=== PATIENT | male | born 1940 | race Caucasian/White ===

== ENCOUNTER 2017-05-26 11:58 | Emergency (ER) | payer MEDICARE, MEDICAID ==
[~2017-05-26] VITALS: Ht 167.6 cm; Wt 68.9 kg
--- NOTE | 2017-05-26 12:03 | NUR ---
S/ FELL OFF BED AT NIGHT ~ 0030, R EYE HEMATOMA. TAKES PLAVIX DAILY. DENIES N/V/ DIZZINESS
--- NOTE | 2017-05-26 12:20 | NUR ---
DR AVALOS AT BEDSIDE FOR EVAL
--- NOTE | 2017-05-26 12:28 | NUR ---
PT TAKEN TO CT
--- NOTE | 2017-05-26 13:47 | NUR ---
Patient discharged to home in stable condition. Written and verbal after care instructions given. Patient verbalizes understanding of instruction.
[2017-05-26 13:49] VITALS: BP 120/62
== END 2017-05-26 13:50 | disposition home or self-care (01) ==
LOC: ER 12:02
DX: S09.90XA Unspecified injury of head, initial encounter (principal); S01.411A Laceration without foreign body of right cheek and temporomandibular area, initial encounter; S00.83XA Contusion of other part of head, initial encounter; I10 Essential (primary) hypertension; I25.10 Atherosclerotic heart disease of native coronary artery without angina pectoris; W06.XXXA Fall from bed, initial encounter; Y93.89 Activity, other specified; Y92.89 Other specified places as the place of occurrence of the external cause; Y99.8 Other external cause status
CPT/HCPCS: 12011; 70450; 70486; 99284; A4606; Z7610

== ENCOUNTER 2018-12-07 12:28 | Emergency (ER) | payer MEDICARE, MEDICAID ==
[~2018-12-07] VITALS: Ht 167.6 cm; Wt 71.7 kg
--- NOTE | 2018-12-07 12:45 | NUR ---
BIB , FROM HOME, CONFUSED THAN USUAL. TO ER BED 1, HOOKED TO MONITOR, CHANGED TO GOWN, PROVIDED W WARM BLANKET, AWAITING MD TRAN.
--- NOTE | 2018-12-07 12:50 | NUR ---
DR SHARP AT BEDSIDE
[2018-12-07] MEDS ORDERED: IV NS 0.9% 1,000 ML BAG IV ONE (13:00)
[2018-12-07 13:05] LABS: BASOPHILS % (AUTO) 0.1 % (0.0-2.0); EOSINOPHILS % (AUTO) 0.2 % (0.0-6.0); HEMATOCRIT 40 % (39-51); HEMOGLOBIN 13.1 g/dL (13.5-17.5); LYMPHOCYTES # (AUTO) 0.8 /CMM (0.8-4.8); LYMPHOCYTES % (AUTO) 9.8 % (20.0-44.0); MEAN CORPUSCULAR HGB CONC 33 g/dl (31.0-36.0); MEAN CORPUSCULAR VOLUME 92 fL (80-96); MONOCYTES # (AUTO) 0.6 /CMM (0.1-1.30); MONOCYTES % (AUTO) 7.9 % (2.0-12.0); NEUTROPHILS # (AUTO) 6.4 /CMM (1.8-8.9); PLATELET COUNT (AUTO) 215 /CMM (150-450); RED BLOOD CELL COUNT(AUTO) 4.33 MIL/uL (4.5-6.0); WHITE BLOOD COUNT (AUTO) 7.8 K/uL (4.3-11.0)
[2018-12-07 13:06] LABS: APPEARANCE,URINE Clear (CLEAR); BILIRUBIN,URINE Negative (NEGATIVE); BLOOD, URINE Negative Ery/uL (NEGATIVE); COLOR,URINE Yellow (YELLOW); KETONES,URINE Negative (NEGATIVE); LEUKOCYTE ESTERASE ,URINE Negative (NEGATIVE); NITRITE, URINE Negative (NEGATIVE); PH,URINE 5.5 (5.0-8.0); PROTEIN,URINE Negative (NEGATIVE); UGLUCOSE Negative (NEGATIVE); UROBILINOGEN,URINE 0.2 EU/dL (0.2)
[2018-12-07 13:24] LABS: ALANINE AMINOTRANSFERASE 15 U/L (12-78); ALBUMIN 3.9 g/dL (3.4-5.0); ALKALINE PHOSPHATASE 52 U/L (46-116); ASPARTATE AMINOTRANSFERASE 36 U/L (15-37); BILIRUBIN,DIRECT 0.1 mg/dL (0.0-0.2); BILIRUBIN,TOTAL 0.6 mg/dL (0.2-1.0); CARBON DIOXIDE 30 mmol/L (21-32); CHLORIDE 103 mmol/L (98-107); CREATININE 1.3 mg/dL (0.6-1.3); GLUCOSE 141 mg/dL (74-106); SODIUM SERUM 140 mmol/L (136-145); TOTAL PROTEIN, SERUM 7.2 g/dL (6.4-8.2); UREA NITROGEN, BLOOD 20 mg/dL (7-18)
[2018-12-07 13:29] LABS: CALCIUM, SERUM 9.2 mg/dL (8.5-10.1); THYROID STIMULATING HORMONE 1.138 uIU/mL (0.358-3.74)
[2018-12-07] MEDS ORDERED: LOSA50TA39 PO (13:47)
[2018-12-07] MEDS ORDERED: RIVA1PAT12 TD (13:47)
[2018-12-07] MEDS ORDERED: CLOP75TA15 PO (13:47)
[2018-12-07] MEDS ORDERED: CHOL50004 PO (13:47)
[2018-12-07] MEDS ORDERED: CARB1TAB21 PO (13:47)
[2018-12-07] MEDS ORDERED: METO50TA16 PO (13:47)
[2018-12-07] MEDS ORDERED: ATOR10TA PO (13:47)
[2018-12-07] MEDS ORDERED: ASPI81TA44 PO (13:47)
--- NOTE | 2018-12-07 14:21 | NUR ---
IV removed. Catheter intact and site benign. Pressure and 4x4 applied to site. No bleeding noted.Patient discharged to home in stable condition. Written and verbal after care instructions given. Patient verbalizes understanding of instruction.
[2018-12-07 14:22] VITALS: BP 127/62
== END 2018-12-07 14:23 | disposition home or self-care (01) ==
LOC: ER 12:29
DX: E86.0 Dehydration (principal); G20 Parkinson's disease; F02.80 Dementia in other diseases classified elsewhere, unspecified severity, without behavioral disturbance, psychotic disturbance, mood disturbance, and anxiety; I10 Essential (primary) hypertension; I25.10 Atherosclerotic heart disease of native coronary artery without angina pectoris; R40.4 Transient alteration of awareness; Z98.890 Other specified postprocedural states; Z79.82 Long term (current) use of aspirin; Z95.5 Presence of coronary angioplasty implant and graft
CPT/HCPCS: 36415; 70450; 71045; 80048; 80076; 81001; 82962; 84443; 85025; 93005; 96360; 99284; J7030; 81000-TC

== ENCOUNTER 2019-09-07 22:42 | Inpatient (IN) | payer MEDICARE, MEDICAID ==
[~2019-09-07] VITALS: Ht 172.7 cm; Wt 78.1 kg
[~2019-09-07 22:42] MED LIST: ASPI81TA44 PO; ATOR10TA PO; CARB1TAB21 PO; CHOL50004 PO; CLOP75TA15 PO; LOSA50TA39 PO; METO50TA16 PO; RIVA1PAT12 TD
--- NOTE | 2019-09-07 22:53 | NUR ---
PT VIRGILIO FROM [facility] C/C HIGH FEVER, RECENT UTI/GUEVARA. ON ANTIBIOTICS. BG 132 PER EMS. PT NONVERBAL, RESPONSIVE TO MECHANICAL STIMULUS, CONNECTED TO THE MONITOR AND POX.
--- NOTE | 2019-09-07 22:55 | NUR ---
BLOOD DRAWN AND SENT TO LAB
[2019-09-07] MEDS ORDERED: CEFTRIAXONE 1 G in IV D5W 50 ML IV ONE (23:00)
[2019-09-07] MEDS ORDERED: IV NS 0.9% 1,000 ML BAG IV ONE (23:00)
[2019-09-07] MEDS ORDERED: MEROPENEM 1 G in IV NS 0.9% 100 ML IV ONE (23:00)
--- NOTE | 2019-09-07 23:00 | NUR ---
URINE COLLECTED AND SENT TO LAB
[2019-09-07] MEDS ORDERED: CEFTRIAXONE 1GM BAG (ER ONLY) 50 ML IV ONE (23:05)
[2019-09-07] MEDS ORDERED: MEROPENEM 1 G VIAL IV ONE (23:06)
[2019-09-07 23:22] LABS: BASOPHILS % (AUTO) 1.2 % (0.0-2.0); EOSINOPHILS % (AUTO) 0.6 % (0.0-6.0); HEMATOCRIT 34 % (39-51); HEMOGLOBIN 10.8 g/dL (13.5-17.5); LYMPHOCYTES # (AUTO) 0.1 /CMM (0.8-4.8); LYMPHOCYTES % (AUTO) 14.3 % (20.0-44.0); MEAN CORPUSCULAR HGB CONC 32 g/dl (31.0-36.0); MEAN CORPUSCULAR VOLUME 88 fL (80-96); NEUTROPHILS # (AUTO) 0.3 /CMM (1.8-8.9); NEUTROPHILS % (AUTO) 82.9 % (43.0-81.0); PLATELET COUNT (AUTO) 106 /CMM (150-450); RED BLOOD CELL COUNT(AUTO) 3.85 MIL/uL (4.5-6.0)
[2019-09-07] MEDS ORDERED: ACETAMINOPHEN 650 MG/SUPP.RECT RC ONE ×2 (23:23→23:30)
[2019-09-07 23:25] LABS: CALCIUM, SERUM 8.4 mg/dL (8.5-10.1); CARBON DIOXIDE 25 mmol/L (21-32); CHLORIDE 102 mmol/L (98-107); CREATININE 1.4 mg/dL (0.6-1.3); GLUCOSE 133 mg/dL (74-106); POTASSIUM 3.4 mmol/L (3.5-5.1); SODIUM SERUM 137 mmol/L (136-145); UREA NITROGEN, BLOOD 36 mg/dL (7-18); WHITE BLOOD COUNT (AUTO) 0.4 K/uL (4.3-11.0)
[2019-09-07] MEDS ORDERED: ACETAMINOPHEN ES 500 MG TABLET PO ONE (23:30)
[2019-09-07 23:31] LABS: APPEARANCE,URINE Cloudy (CLEAR); BILIRUBIN,URINE SMALL (NEGATIVE); BLOOD, URINE Large Ery/uL (NEGATIVE); COLOR,URINE Yellow (YELLOW); KETONES,URINE Trace (NEGATIVE); LEUKOCYTE ESTERASE ,URINE Large (NEGATIVE); NITRITE, URINE Positive (NEGATIVE); PROTEIN,URINE >=300 mg/dl (NEGATIVE); UGLUCOSE Negative (NEGATIVE); UROBILINOGEN,URINE 0.2 EU/dL (0.2)
[2019-09-07 23:32] LABS: PH,URINE >9.0 (5.0-8.0)
[2019-09-07 23:43] LABS: ALANINE AMINOTRANSFERASE 12 U/L (12-78); ALBUMIN 2.8 g/dL (3.4-5.0); ALKALINE PHOSPHATASE 71 U/L (46-116); ASPARTATE AMINOTRANSFERASE 41 U/L (15-37); B-TYPE NATRIURETIC PEPTIDE 1140 PG/ML (0-125); BILIRUBIN,DIRECT 0.1 mg/dL (0.0-0.2); BILIRUBIN,TOTAL 0.3 mg/dL (0.2-1.0); TOTAL PROTEIN, SERUM 6.3 g/dL (6.4-8.2)
[2019-09-08] MEDS ORDERED: ONDANSETRON HCL/PF 4 MG/2 ML VIAL IVP PRN
[2019-09-08] MEDS ORDERED: MAG HYDROX/AL HYDROX/SIMETH 30 ML UDC PO PRN
[2019-09-08] MEDS ORDERED: MAGNESIUM HYDROXIDE 30 ML UDC PO PRN
[2019-09-08] MEDS ORDERED: Z GUARD REMEDY 2 OZ OINT TP PRN
--- NOTE | 2019-09-08 00:14 | NUR ---
FLUID REASSESSMENT DONE
--- NOTE | 2019-09-08 00:21 | NUR ---
'S NUMBER [phone] LUIS ALFREDO
--- NOTE | 2019-09-08 00:27 | NUR ---
REPORT GIVEN TO NACHO MCNEIL
[2019-09-08 00:45] VITALS: BP 101/53
--- NOTE | 2019-09-08 00:53 | NUR ---
PT TRANSFERRED IN STABLE CONDITION
--- NOTE | 2019-09-08 01:00 | NUR ---
RN ADMITTING NOTES RECEIVED REPORT FROM CLEARANCE CUTTER AMIE. Pt ARRIVED TO THE FLOOR VIA ER [facility]DO; TRANSFERRED Pt TO ROOM BED SAFELY WITH STAFF MEMBERS. Pt IS NONVERBAL, NOT RESPONDING TO QUESTIONS, BUT IS AWAKE, AND RESPONDS TO STIMULI. OPENS & CLOSES EYES. IV ACCESS ON LWRIST/LFA #16G & RWRIST #18G. NO S/S OF ACUTE DISTRESS OR SOB NOTED. SAFETY MEASURES IN PLACE. BED LOW, LOCKED, HOB ELEVATED, SIDE RAILS UP, BED ALARM ON. WILL CONTINUE TO MONITOR Pt's CONDITION AND SAFETY THROUGHOUT THE NIGHT. TELE READING SR 98.
[2019-09-08 01:19] LABS: BACTERIA,URINE Moderate /HPF (None Seen); SQUAMOUS EPITHELIAL CELL,UR Rare /HPF (None Seen); TRIPLE PHOSPHATE CRYSTAL,UR Few /HPF (None Seen)
[2019-09-08] MEDS: IV NS 0.9% 1,000 ML IV PRN ×2 (01:48→17:55)
[2019-09-08 02:03] LABS: LYMPHOCYTES % (MANUAL) 19 % (16-48); MONOCYTES % (MANUAL) 1 % (0-11.0); NEUTROPHILS % (MANUAL) 80 (42-76)
[2019-09-08] MEDS ORDERED: VANCOMYCIN 1.5 GM in IV D5W 500ml IV ONE (02:30)
[2019-09-08] MEDS ORDERED: VANCOMYCIN 1 GM VIAL ONE ×2 (02:39→03:03)
--- NOTE | 2019-09-08 02:45 | NUR ---
RN NOTES VANCO 1.5GM NOT AVAILABLE ON THE FLOOR. PER NURSE PHYSICAL CHEMIST, SAID TO PULL OUT 2 VANCO OF 1GM AND GIVE ONLY HALF OF THE 2ND VANCO, IN ORDER TO GIVE THE TOTAL DOSE OF 1.5GM.
--- NOTE | 2019-09-08 03:03 | NUR ---
RN NOTES SPOKE WITH LETTY ON THE PHONE IN REGARDS TO Pt's REPEAT LACTIC ACID OF 4.3 (ELEVATED FROM 3.3 IN ER) VERBAL ORDER GIVEN TO GIVE 1L NS BOLUS AND ANOTHER REPEAT LACTIC ACID AFTERWARDS.
[2019-09-08] MEDS ORDERED: IV NS 0.9% 1,000 ML IV ONE ×2 (03:30→05:30)
[2019-09-08] MEDS ORDERED: TAMS-12 PO (03:56)
[2019-09-08] MEDS ORDERED: FERR325T23 PO (03:56)
[2019-09-08] MEDS ORDERED: SIMV80TA90 PO (03:56)
[2019-09-08] MEDS ORDERED: ESCI10TA PO (03:56)
[2019-09-08] MEDS ORDERED: CRAN425C6 PO (03:56)
[2019-09-08] MEDS ORDERED: MEMA10TA PO (03:56)
[2019-09-08 04:00] VITALS: BP 137/98
[2019-09-08 04:05] LABS: EOSINOPHILS % (AUTO) 0.2 % (0.0-6.0); HEMATOCRIT 30 % (39-51); HEMOGLOBIN 9.7 g/dL (13.5-17.5); LYMPHOCYTES # (AUTO) 0.1 /CMM (0.8-4.8); LYMPHOCYTES % (AUTO) 4.6 % (20.0-44.0); MEAN CORPUSCULAR HGB CONC 32 g/dl (31.0-36.0); MEAN CORPUSCULAR VOLUME 90 fL (80-96); MONOCYTES % (AUTO) 1.1 % (2.0-12.0); NEUTROPHILS # (AUTO) 2.4 /CMM (1.8-8.9); NEUTROPHILS % (AUTO) 94.1 % (43.0-81.0); PLATELET COUNT (AUTO) 69 /CMM (150-450); RED BLOOD CELL COUNT(AUTO) 3.39 MIL/uL (4.5-6.0); WHITE BLOOD COUNT (AUTO) 2.6 K/uL (4.3-11.0)
[2019-09-08 04:15] LABS: CALCIUM, SERUM 8.3 mg/dL (8.5-10.1); CARBON DIOXIDE 21 mmol/L (21-32); CHLORIDE 106 mmol/L (98-107); CREATININE 1.6 mg/dL (0.6-1.3); GLUCOSE 119 mg/dL (74-106); MAGNESIUM 1.6 mg/dL (1.8-2.4); PHOSPHORUS 1.4 mg/dL (2.5-4.9); POTASSIUM 3.4 mmol/L (3.5-5.1); SODIUM SERUM 140 mmol/L (136-145); UREA NITROGEN, BLOOD 31 mg/dL (7-18)
[2019-09-08 04:27] LABS: BAND % (MANUAL) 8 % (0.0-5.0); LYMPHOCYTES % (MANUAL) 5 % (16-48); MONOCYTES % (MANUAL) 1 % (0-11.0); NEUTROPHILS % (MANUAL) 86 (42-76)
[2019-09-08 04:28] LABS: CHOLESTEROL 75 mg/dL (<200); HDL CHOLESTEROL 33 mg/dL (40-60); LDL 37 mg/dL (0-99); THYROID STIMULATING HORMONE 1.482 uIU/mL (0.358-3.74); TRIGLYCERIDES 78 mg/dL (30-150)
--- NOTE | 2019-09-08 04:42 | NUR ---
RN NOTES PAGED WAREHOUSE SHIPPER HOSPITALIST LETTY TO INFORM HIM OF Pt's REPEAT LACTIC ACID OF 5.5 . WAITING FOR CALL BACK.
[2019-09-08] MEDS ORDERED: MEROPENEM 500 MG in IV NS 0.9% 50 ML IV SCH ×4 (05:00)
--- NOTE | 2019-09-08 05:28 | NUR ---
RN NOTES SPOKE WITH LETTY ON THE PHONE INFORMED HIM OF Pt's INCREASED LACTIC ACID OF 5.5 GAVE VERBAL ORDER OF 1L NS BOLUS, LABS: ABG & REPEAT LACTIC ACID. WILL CARRY OUT ORDERS.
[2019-09-08] MEDS ORDERED: MEROPENEM 500 MG VIAL IV ONE (05:52)
--- NOTE | 2019-09-08 06:30 | NUR ---
RN CLOSING NOTES NO OTHER SIGNIFICANT CHANGES IN Pt's CONDITION. Pt's TEMP HAS DECREASED TO 98.2F AUX, S/P COOLING MEASURES GIVEN. FLAME CHANNELER AWARE. IVF NS RUNNING @75ML/HR INFUSING WELL. IV ACCESS INTACT & PATENT. TELE READING SR 96. ALL NEEDS MET AND ATTENDED TO. SAFETY MEASURES IN PLACE. WILL ENDORSE TO FLORA RN FOR Pt's ISIDRO.
--- NOTE | 2019-09-08 07:30 | NUR ---
RECEIVED PT. ASLEEP. VS STABLE. SKIN WARM AND DRY. IV INFUSING. GOOD AMT. URINE DRAINING FROM SUPRAPUBIC CATHETER.NOT AROUSABLE,BUT STABLE.SIDE RAILS UP.APPEARS COMFORTABLE.
[2019-09-08 08:00] VITALS: BP 113/67
--- NOTE | 2019-09-08 08:00 | NUR ---
MOUTH CARE DONE AND FAMILY HERE WANTING TO FEED PT. ADVISED NPO.
[2019-09-08] MEDS ORDERED: FEE PK DOSING 1 MIN EA MC ONE (08:24)
[2019-09-08] MEDS: CHOLECALCIFEROL 1,000 UNIT TABLET (VIT D3) PO SCH (09:00)
[2019-09-08] MEDS: CLOPIDOGREL BISULFATE 75 MG TABLET PO SCH (09:00)
[2019-09-08] MEDS: ASPIRIN EC 81 MG TABLET.DR PO SCH (09:00)
[2019-09-08] MEDS: METOPROLOL TARTRATE 50 MG TABLET PO SCH ×2 (09:00→17:00)
[2019-09-08] MEDS ORDERED: LOSARTAN POTASSIUM 50 MG TABLET PO SCH (09:00)
[2019-09-08] MEDS: CARBIDOPA/LEVODOPA 25/100 MG 1 UDTAB PO SCH ×3 (09:00→17:00)
[2019-09-08 09:29] LABS: ABG BASE EXCESS -6.1 mmol/L; ABG OXYGEN SATURATION 97.8 % (92.0-98.5); ABG PCO2 26.4 mmHg (35.0-45.0); ABG PH 7.426 (7.350-7.450); ABG PO2 116.4 mmHg (75.0-100.0); AaDO2 66.5 mmHg; MetHb 0.3 % (0.0-1.5); O2Hb 97.5 % (94.0-97.0); SITE, ABG Right Radial; VENT MODE, BG NC 3L
[2019-09-08] MEDS ORDERED: POTASSIUM CHLORIDE 20 MEQ TAB.PRT.SR PO SCH (10:30)
[2019-09-08] MEDS ORDERED: POTASSIUM CL. PREMIX PERIPHER. 50 ML IV SCH (10:30)
[2019-09-08] MEDS: RIVASTIGMINE TARTRATE 4.6 MG PATCH.TD24 TD SCH (10:56)
[2019-09-08] MEDS ORDERED: MGSO4/D5W 100 ML IV SCH (11:30)
[2019-09-08] MEDS ORDERED: Magnesium 1GM/D5W 100ML PREMIX PIGGYBACK IV ONE (11:30)
--- NOTE | 2019-09-08 11:30 | NUR ---
WOKE UP FOR ONE HR ONLY,AFEBRILE THIS SHIFT SO FAR.
--- NOTE | 2019-09-08 14:30 | NUR ---
URINE SENT PER DR. RUELAS'S ORDERS.MG. POTASSIUM REPLACED LOW.ABG'S DONE AND OK.REPORT IN COMPUTER.
[2019-09-08 16:00] VITALS: BP 119/60
[2019-09-08 17:08] LABS: CREATININE, URINE 115.4 MG/DL (30.0-125.0)
--- NOTE | 2019-09-08 17:30 | NUR ---
RECEIVED ABNORMAL BLOOD CULTURE RESULTS.PT. ON 2 ANTIBIOTICS.RN CONTACTED Mc GASPAR NP AND STATES HE WILL CALL JEAN OROZCO.
[2019-09-08 17:43] LABS: APPEARANCE,URINE SL CLOUDY (CLEAR); BILIRUBIN,URINE NEGATIVE (NEGATIVE); BLOOD, URINE LARGE Ery/uL (NEGATIVE); COLOR,URINE YELLOW (YELLOW); KETONES,URINE NEGATIVE (NEGATIVE); LEUKOCYTE ESTERASE ,URINE SMALL (NEGATIVE); NITRITE, URINE NEGATIVE (NEGATIVE); PROTEIN,URINE 100 mg/dl (NEGATIVE); UGLUCOSE NEGATIVE (NEGATIVE); UROBILINOGEN,URINE 0.2 EU/dL (0.2)
[2019-09-08] MEDS: ATORVASTATIN 10 MG TABLET PO SCH (17:44)
--- NOTE | 2019-09-08 18:00 | NUR ---
RN SPOKE TO SOHEILA PHARMACIST PHOSPHOROUS LOW AND NOT REPLACED.SOHEILA STATES HE WILL TAKE CARE OF IT.
[2019-09-08 18:02] LABS: BACTERIA,URINE 1+ /HPF (None Seen); RBC,URINE 21-50 /HPF (0-2)
--- NOTE | 2019-09-08 18:45 | NUR ---
ADDITIONAL ORDERS PER Mc GASPAR NP.RN CONTACTED LAB-STATED THEY WILL ADD ON URINE CULTURE.
--- NOTE | 2019-09-08 19:00 | NUR ---
RN medsurg opening notes Received Pt from morning nurse. Pt is alert and orientedX1. Pt is resting in bed comfortably. Respiration is normal in 2 L NC. No SOB. No S/S of distress noted. Both peripheral IV at L forearm # 16 is clean, intact and patent. IV sites R wrist # 18 is clean, intact and patent. Suprapubic cath is intact, patent and draining yellow urine. Safety precautions is maintained. Bed at low position, brakes locked, side rails upX3 and call light is within reach. Will continue to monitor.
--- NOTE | 2019-09-08 19:30 | NUR ---
NACHO mcclellan notes echocardiography tech. called and informed that manager labor delivery. can't draw some blood culture because Pt's agitated and not cooperable. Informed manager labor delivery to come back again. Will continue to monitor.
[2019-09-08 20:00] VITALS: BP 134/66
[2019-09-08] MEDS ORDERED: Sodium Phosphate 15 MMOL in IV D5W 250 ML IV ONE (20:00)
[2019-09-08 20:21] LABS: EOSINOPHIL,URINE None Seen
[2019-09-08] MEDS: ACETAMINOPHEN 650 MG/SUPP.RECT RC PRN (20:47)
--- NOTE | 2019-09-08 20:47 | NUR ---
RN medsurg notes Pt's temp is 100.0 F. Administered tylenol supp. rect 650 mg for fever as ordered. Will continue to monitor.
--- NOTE | 2019-09-08 20:50 | NUR ---
NACHO medsurg notes Tylenol 650 mg supp. rectal is given. Pt tolerated well. Cooling measured is applied and maintained. Will continue to monitor.
[2019-09-08] MEDS ORDERED: VANCOMYCIN 0.75 GM in IV D5W 250 ML IV SCH (21:00)
--- NOTE | 2019-09-08 21:40 | NUR ---
NACHO mcclellan notes Pt's temp is 99.3 F. Will continue to monitor.
[2019-09-08] MEDS: MEROPENEM 1 G in IV NS 0.9% 100 ML IV SCH (21:48)
--- NOTE | 2019-09-08 22:00 | NUR ---
RN vy notes Bundle Cutter. Vasquez came to draw some blood culture. Informed car barn laborer that vanco and merrem abx are running. Informed car barn laborer to get some blood culture even though abx are given. Pt tolerated activity well.
[2019-09-08 23:45] VITALS: BP 104/51
[2019-09-09] MEDS: ACETAMINOPHEN 650 MG/SUPP.RECT RC PRN (04:49)
--- NOTE | 2019-09-09 04:50 | NUR ---
NACHO strickland notes Pt's temp is 99.9 F. Administered tylenol supp 650mg as ordered for fever. Cooling measured is applied and maintained. Will continue to monitor.
--- NOTE | 2019-09-09 06:00 | NUR ---
NACHO mcclellan notes Pt's temp is 98.8 F. Will continue to monitor.
--- NOTE | 2019-09-09 07:00 | NUR ---
RN medsurg closing notes Pt is resting in bed comfortably. Respiration is normal in 2 L NC. No SOB. No S/S of distress noted. LFA# 16 is clean, intact, patent and SL. R wrist # 18 is clean, intact and patent. Suprapubic cath is clean, intact and draining yellow urine. Routine meds were given as ordered. VS is stable. Kept Pt clean, dry, and comfortable. Safety precautions is maintained. Bed at low position, brakes locked, side rails upx3 and call light is within reach. Will endorse to morning nurse.
[2019-09-09 08:00] VITALS: BP 101/74
--- NOTE | 2019-09-09 08:00 | NUR ---
MS RN OPENING NOTES Received Patient asleep and resting in bed. A/O x 1 with episodes of confusion. VS stable with no acute distress. Breathing even and unlabored on 2LPM via NC with no respiratory distress. No signs and symptoms of pain. 16g PIV on LFA clean, intact, patent and flushing well. 18g PIV on Right Wrist clean, intact, patent and flushing well with NS infusing at 75ml/hr. Suprapubic Cath in place and patent with clear, yellow output noted. NPO precautions in place. Safety precautions in place. Bed locked and set to lowest position with side rails x 2 up. All needs rendered at this time. Call light within reach. Will continue to monitor.
[2019-09-09 08:24] LABS: BASOPHILS % (AUTO) 0.3 % (0.0-2.0); EOSINOPHILS % (AUTO) 0.5 % (0.0-6.0); HEMATOCRIT 32 % (39-51); HEMOGLOBIN 10.4 g/dL (13.5-17.5); LYMPHOCYTES # (AUTO) 0.6 /CMM (0.8-4.8); LYMPHOCYTES % (AUTO) 5.9 % (20.0-44.0); MEAN CORPUSCULAR HGB CONC 33 g/dl (31.0-36.0); MEAN CORPUSCULAR VOLUME 88 fL (80-96); MONOCYTES # (AUTO) 0.5 /CMM (0.1-1.30); MONOCYTES % (AUTO) 5.2 % (2.0-12.0); NEUTROPHILS # (AUTO) 8.4 /CMM (1.8-8.9); NEUTROPHILS % (AUTO) 88.1 % (43.0-81.0); PLATELET COUNT (AUTO) 83 /CMM (150-450); RED BLOOD CELL COUNT(AUTO) 3.61 MIL/uL (4.5-6.0); WHITE BLOOD COUNT (AUTO) 9.5 K/uL (4.3-11.0)
[2019-09-09 08:36] LABS: CALCIUM, SERUM 7.8 mg/dL (8.5-10.1); CREATININE 1.1 mg/dL (0.6-1.3); PHOSPHORUS 2.2 mg/dL (2.5-4.9); POTASSIUM 3.7 mmol/L (3.5-5.1)
[2019-09-09 08:43] LABS: BAND % (MANUAL) 12 % (0.0-5.0); LYMPHOCYTES % (MANUAL) 6 % (16-48); MONOCYTES % (MANUAL) 4 % (0-11.0); NEUTROPHILS % (MANUAL) 78 (42-76)
[2019-09-09] MEDS: ASPIRIN EC 81 MG TABLET.DR PO SCH (09:00)
[2019-09-09] MEDS: CLOPIDOGREL BISULFATE 75 MG TABLET PO SCH (09:00)
[2019-09-09] MEDS: CHOLECALCIFEROL 1,000 UNIT TABLET (VIT D3) PO SCH (09:00)
[2019-09-09] MEDS: CARBIDOPA/LEVODOPA 25/100 MG 1 UDTAB PO SCH ×3 (09:00→17:03)
[2019-09-09] MEDS: METOPROLOL TARTRATE 50 MG TABLET PO SCH ×2 (09:00→17:03)
[2019-09-09] MEDS: MEROPENEM 1 G in IV NS 0.9% 100 ML IV SCH ×2 (10:01→20:07)
[2019-09-09] MEDS: RIVASTIGMINE TARTRATE 4.6 MG PATCH.TD24 TD SCH (10:07)
--- NOTE | 2019-09-09 13:03 | NUR ---
MS RN NOTES Inserted NGT at this time. Patient tolerated well. Patient asleep and resting at this time. Awaiting xray confirmation of placement. Will continue to monitor.
--- NOTE | 2019-09-09 15:07 | NUR ---
MS RN NOTES Notified Dionicio DNP of chest xray results s/p NGT insertion. Per DNP, okay to start feeding. Patient in stable condition. Will continue to monitor.
[2019-09-09] MEDS: VANCOMYCIN 0.75 GM in IV D5W 250 ML IV SCH (15:44)
[2019-09-09] MEDS: IV NS 0.9% 1,000 ML IV PRN (15:58)
[2019-09-09 16:00] VITALS: BP 129/52
[2019-09-09] MEDS ORDERED: NEUTRA PHOS 1 POWD.PACKET NG ONE (16:00)
[2019-09-09] MEDS: ATORVASTATIN 10 MG TABLET PO SCH (17:04)
--- NOTE | 2019-09-09 18:50 | NUR ---
MS RN CLOSING NOTES Patient asleep and resting in bed. A/O x 1 with episodes of confusion. VS stable with no acute distress. Breathing even and unlabored on 2LPM via NC with no respiratory distress. No signs and symptoms of pain. 16g PIV on LFA clean, intact, patent and flushing well. NG-Tube in place and patent with Jevity 1.2 infusing at 35ml/hr. 18g PIV on Right Wrist clean, intact, patent and flushing well with NS infusing at 75ml/hr. Suprapubic Cath in place and patent with clear, yellow output noted. NPO precautions in place. Safety precautions in place. Bed locked and set to lowest position with side rails x 2 up. All needs rendered at this time. Call light within reach. Will endorse plan of care to oncoming shift.
--- NOTE | 2019-09-09 19:00 | NUR ---
RN medsurg opening notes Received Pt from morning nurse. Pt is alert and orientedX1. Pt is laying in bed awake. Respiration is normal in 2L NC. No SOB. No S/S of distress noted. Iv sites at LFA# 16 is clean, intact, patent and IV sites at R wrist is clean, intact, patent and infusing well NS @ 75 ml/hr. NG tube is clean, intact and patent. Suprapubic cath is clean, intact, patent and draining yellow urine. HOB elevated all the time. Safety precautions is maintained. Bed at low position, brakes locked, side rails upX3 and call light is within reach. Will continue to monitor.
[2019-09-09 20:00] VITALS: BP 115/62
[2019-09-09] MEDS: JEVITY 1.2 CAL 1,000 ML BOTTLE GT PRN (20:17)
[2019-09-10] MEDS: VANCOMYCIN 0.75 GM in IV D5W 250 ML IV SCH ×2 (02:24→15:42)
--- NOTE | 2019-09-10 06:46 | NUR ---
NACHO medsur closing notes Pt is resting in bed comfortably. Pt is alert and orientedX1. Respiration is normal in 2 L NC. No SOB. No S/S of distress noted. VS is stable. Afebrile. Kept Pt clean, dry, warm and comfortable. Skin care is provided. Routine meds were given as ordered. Suprapubic cath is clean, intact, and draining yellow urine. NG tube at R nare is patent and intact and running jevity 1.2 annamarie at rate 35 ml/hr. Pt tolerated well. Safety precautions is maintained. Bed at low position, brakes locked, side rails upX3 and call light is within reach. Will endorse to morning nurse for ISIDRO. Addendum: 09/10/19 at 0657 by GILLES SAGASTUME RN IV sites at LFA# 16 is clean, intact and patent. IV sites at R wrist # 18 is clean, intact, patent and infuising well NS@ 75 ml/hr.
[2019-09-10 07:49] LABS: BASOPHILS % (AUTO) 0.2 % (0.0-2.0); EOSINOPHILS % (AUTO) 0.1 % (0.0-6.0); HEMATOCRIT 30 % (39-51); HEMOGLOBIN 9.8 g/dL (13.5-17.5); LYMPHOCYTES # (AUTO) 0.7 /CMM (0.8-4.8); LYMPHOCYTES % (AUTO) 7.1 % (20.0-44.0); MEAN CORPUSCULAR HGB CONC 33 g/dl (31.0-36.0); MEAN CORPUSCULAR VOLUME 86 fL (80-96); MONOCYTES # (AUTO) 0.6 /CMM (0.1-1.30); NEUTROPHILS # (AUTO) 8.3 /CMM (1.8-8.9); NEUTROPHILS % (AUTO) 86.6 % (43.0-81.0); PLATELET COUNT (AUTO) 86 /CMM (150-450); RED BLOOD CELL COUNT(AUTO) 3.42 MIL/uL (4.5-6.0); WHITE BLOOD COUNT (AUTO) 9.5 K/uL (4.3-11.0)
[2019-09-10 08:00] VITALS: BP 141/74
[2019-09-10] MEDS ORDERED: MAGNESIUM HYDROXIDE 30 ML UDC NG PRN (08:00)
--- NOTE | 2019-09-10 08:00 | NUR ---
MS RN OPENING NOTES Received Patient awake alert and oriented x 1 No cardiac or respiratory distress noted. on 2LPM via NC No signs and symptoms of pain or discomfort. IV site noted 16g PIV on LFA clean, intact, patent and flushing well. 18g PIV on Right Wrist clean, intact, patent and flushing well. Suprapubic Cath in place and patent dranining with clear yellow urine. PT is still npo. Safety precautions in place. Bed locked and set to lowest position with side rails x 2 up. All needs rendered at this time. Call light within reach. Will continue to monitor.
[2019-09-10 08:09] LABS: CALCIUM, SERUM 8.1 mg/dL (8.5-10.1); CREATININE 0.9 mg/dL (0.6-1.3); POTASSIUM 3.4 mmol/L (3.5-5.1)
[2019-09-10] MEDS: CARBIDOPA/LEVODOPA 25/100 MG 1 UDTAB NG SCH ×3 (08:27→16:05)
[2019-09-10] MEDS: CHOLECALCIFEROL 1,000 UNIT TABLET (VIT D3) NG SCH (08:27)
[2019-09-10] MEDS: RIVASTIGMINE TARTRATE 4.6 MG PATCH.TD24 TD SCH (08:34)
[2019-09-10] MEDS: MEROPENEM 1 G in IV NS 0.9% 100 ML IV SCH (08:35)
[2019-09-10] MEDS: METOPROLOL TARTRATE 50 MG TABLET NG SCH ×2 (08:43→16:06)
--- NOTE | 2019-09-10 09:49 | NUR ---
increased rate gt feeding ngt feeding increased to 10cc every 6hrs to real goal of 70ml/hr.
[2019-09-10] MEDS ORDERED: POTASSIUM CHLORIDE 20 MEQ POWDER PACKET NG SCH (10:00)
[2019-09-10] MEDS ORDERED: NEUTRA PHOS 1 POWD.PACKET NG ONE (10:00)
[2019-09-10] MEDS ORDERED: MAG HYDROX/AL HYDROX/SIMETH 30 ML UDC NG PRN (12:00)
--- NOTE | 2019-09-10 15:35 | NUR ---
VANCO TROUGH NOTIFIED PHARMACY REGARDINGVANCO TROUGH OF 8. PER PHARMACY (JOLLY) SAMARA TO GIVE CURRENT DOSE OF VANCO. PER PHARMACY THEY WILL ADJUST DOSE LATER.
[2019-09-10 16:00] VITALS: BP 146/70
--- NOTE | 2019-09-10 16:58 | NUR ---
MS RN CLOSING NOTES Patient awake alert and oriented x 1. Pt is more responsive, as he tried to respond verbally in Moldovan. however he is confused. No cardiac or respiratory distress noted. on 2LPM via NC No signs and symptoms of pain or discomfort. IV site noted 16g PIV on LFA clean, intact, patent and flushing well. 18g PIV on Right Wrist clean, intact, patent and flushing well. Suprapubic Cath in place and patent dranining with clear yellow urine. PT is still npo. NGtube running with rate of 55cc/hr, pts current orders are to increase ngt feeding 10cc/hr with goal rate of 70ml/hr. Safety precautions in place. Bed locked and set to lowest position with side rails x 2 up. All needs rendered at this time. Call light within reach. Will continue to monitor.
[2019-09-10] MEDS: JEVITY 1.2 CAL 1,000 ML BOTTLE GT PRN (18:38)
[2019-09-10] MEDS ORDERED: CEFEPIME 1 GM in IV D5W 50 ML IV SCH (19:30)
[2019-09-10 20:00] VITALS: BP 154/83
--- NOTE | 2019-09-10 20:30 | NUR ---
yarn mercerizer operator helper: received report at 1900 from autunm duran. pt non verbal, flat affect, on 2l oxygen via nc, respirations even and unlabored. pt has ngtube inserted on right nares, dressing in placed,c/d/i. noted iv access infiltrated, removed and applied pressure duressure. secured new line on right ac g 22. 1999-upon assessment, abdomen soft to touch with active bowel sound heard upon auscultation. placement of ngtube checked, xray result at chart, no residual obtained upon checking, able to flush ngtube with 30cc of water easily without meeting any resistance. pt currently on gtube feeding jevity 1.2 at 55ml/hr, with instructions to increase feeding by 10cc q6hrs which is schedule at 2200. goal is 70ml/hr. ble kept offloaded on pillows. safety precautions for fall initaited, call light in reach. will continue monitoring pt.
--- NOTE | 2019-09-10 20:30 | NUR ---
RN NOTES: FOLLOWED UP WITH PHARMACIST REGARDING NEW ORDER ATB MAXIPIME, IT IS NOT IN THE PT'S CASSETTE YET, PER PHARM WILL SEND IT SOON
[2019-09-10] MEDS: CEFEPIME 2 GM in IV D5W 100 ML IV SCH (21:10)
--- NOTE | 2019-09-10 22:00 | NUR ---
rn notes/gtf increase: increased to gtube feeding to 65 ml/hr per order
[2019-09-11] MEDS ORDERED: VANCOMYCIN 1 GM in IV D5W 250 ML IV SCH (01:00)
--- NOTE | 2019-09-11 04:00 | NUR ---
RN NOTES: GTUBE PATENCY CHECK. NO RESIDUAL OBTAINED. ABDOMEN SOFT TO TOUCH WITH ACTIVE BOWEL SOUND HEARD UPON AUSCULTATION.GTUBE FEEDING INCREASE TO 70ML/HR, GOAL.
[2019-09-11 06:33] LABS: CALCIUM, SERUM 8.4 mg/dL (8.5-10.1); CREATININE 0.8 mg/dL (0.6-1.3); PHOSPHORUS 2.7 mg/dL (2.5-4.9); POTASSIUM 3.7 mmol/L (3.5-5.1)
--- NOTE | 2019-09-11 06:40 | NUR ---
END OF SHIFT REPORT: PT REMAINS ON NG-TUBE, CURRENTLY ON GTUBE FEEDING AT 70ML/HR. GTUBE FEEDING TOLERATED WELL BY PT, NO RESIDUAL OBTAINED. IV ACCESS ON RIGTH AC REMAINS PATENT AND FLUSHING WELL, ON HL. NO S/S OF IV INFILTRATION NOTED. REMAISN WITH SUPRAPUBIC CATHETER, BAG DRAINING BY GRAVITY. ID CHANGED IV ATB TO CEFEPIME 2GM IVPB X2 WEEKS. VS REMAINS STABLE, NEEDS ATTENDED. BLE KEPT OFFLOADED ON PILLOWS. SAFETY PRECAUTIONS FOR FALL REMAINS ENGAGED, CALL LIGHT IN REACH, WILL ENDORSE TO DAY RN FOR CONTINUITY OF CARE.
--- NOTE | 2019-09-11 07:49 | NUR ---
RN OPENING NOTES Patient received on 2l nasal cannula, no sob noted, patient shows no s/s of pain at this time. Patient remains a/o x1 with a suprapubic gamez. L heel DT sacral and scrotum redness. Jevity 1.2 @ 70 ml per hour to run for 24 hours. Bed at the lowest setting, call light within reach, side rails up x2.
[2019-09-11] MEDS: CHOLECALCIFEROL 1,000 UNIT TABLET (VIT D3) NG SCH (08:09)
[2019-09-11] MEDS: CARBIDOPA/LEVODOPA 25/100 MG 1 UDTAB NG SCH ×3 (08:09→17:31)
[2019-09-11] MEDS: LOSARTAN POTASSIUM 50 MG TABLET PO SCH (08:10)
[2019-09-11] MEDS: METOPROLOL TARTRATE 50 MG TABLET NG SCH ×2 (08:10→17:31)
[2019-09-11] MEDS: RIVASTIGMINE TARTRATE 4.6 MG PATCH.TD24 TD SCH (08:11)
[2019-09-11 08:27] VITALS: BP 154/78
[2019-09-11] MEDS: CEFEPIME 2 GM in IV D5W 100 ML IV SCH ×2 (09:21→21:46)
[2019-09-11] MEDS: JEVITY 1.2 CAL 1,000 ML BOTTLE GT PRN (14:57)
[2019-09-11 16:40] VITALS: BP 155/75
--- NOTE | 2019-09-11 18:43 | NUR ---
rn closing notes patient remains on 2l nasal cannula, no sob noted, patient denies pain at this time. suprapubic gamez remains intact. jevity 1.2 @ 70 ml per hour. R ac 22 HL. Bed at the lowest setting, call light within reach, side rails up x2. Will give report to NOC RN for ISIDRO bedside.
[2019-09-11] MEDS ORDERED: FEE PK DOSING 1 MIN EA MC ONE (18:47)
[2019-09-11 20:00] VITALS: BP 145/75
--- NOTE | 2019-09-11 20:02 | NUR ---
MS RN NOTES RECEIVED PATIENT AWAKE IN BED WITH NO DISTRESS NOTED. CALL LIGHT WITHIN REACH. NO C/O PAIN OR DISCOMFORT. NGT INTACT AND PATENT, TOLERATING TUBE FEEDING WELL. SUPRAPUBIC CATH INTACT AND PATENT, DRAINING CLEAR YELLOW URINE. NO LEAKING, DRAINAGE OR BLEEDING AT STOMA SITE. PERIPHERAL LINE INTACT AND PATENT. BED IN LOW LOCK SETTING WITH BED ALARM ON AND FUNCTIONING PROPERLY. ROOM FREE OF CLUTTER AND BELONGINGS KEPT NEAR BEDSIDE. WILL CONTINUE TO MONITOR
[2019-09-11] MEDS: VANCOMYCIN 1 GM in IV D5W 250ml IV SCH (20:43)
--- NOTE | 2019-09-11 21:00 | NUR ---
PATIENT PULLED OUT 10CM OF NGT. FEEDING HELD AND ADVANCED BACK TO PLACE AT 70CM. MD MADE AWARE AND OBTAINED ORDER FOR STAT KUB. PATIENT CONTINUES TO TRY TO PULL OUT NGT. MD AWARE AND OBTAINED ORDER FOR BILATERAL HAND MITTENS. ORDERS NOTED AND CARRIED OUT. WILL CONTINUE TO MONITOR
[2019-09-12 05:57] LABS: CALCIUM, SERUM 8.7 mg/dL (8.5-10.1); CREATININE 0.9 mg/dL (0.6-1.3); POTASSIUM 3.6 mmol/L (3.5-5.1)
--- NOTE | 2019-09-12 06:15 | NUR ---
MS RN NOTES PATIENT ASLEEP IN BED WITH NO DISTRESS NOTED. CALL LIGHT WITHIN REACH. NGT IN RIGHT NARE IN PLACE. TUBE FEEDING RESUMED AND TOLERATING WELL. ASPIRATION PRECAUTIONS MAINTINAED AT ALL TIMES. ALL DUE MEDS GIVEN ORDERED WITH NO ASE NO FACIAL GRIMACING OR GROANING TO INDICATE PAIN OR DISCOMFORT. PIV INTACT AND PATENT. SUPRAPUBIC CATH INTACT AND DRAINING CLEAR YELLOW URINE. NO LEAKING OR DRAINAGE AT STOMA SITE. BILATERAL HAND MITTENS IN PLACE AND REMOVED Q2HRS AND PRN, NO NEW SKIN BREAKDOWN OR DISCOLORATIONS AND NOTED WITH GOOD CIRCULATION. BED IN LOW LOCK SETTING WITH BED ALARM ON AND FUNCTIONING PROPERLY. WILL ENDORSE TO ONCOMING SHIFT.
--- NOTE | 2019-09-12 07:33 | NUR ---
RN OPENING NOTES Patient received on 2L nasal cannula, no sob noted, a/o x1 at this time. suprapubic present and is draining. Bilateral mittens present at this time due to patient trying to remove NG tube. Bed at the lowest setting, call light within reach, side rails up x2. Sitter at bedside 1;1 at all times.
[2019-09-12 08:00] VITALS: BP 126/61
[2019-09-12] MEDS: VANCOMYCIN 1 GM in IV D5W 250ml IV SCH (08:19)
[2019-09-12] MEDS: CARBIDOPA/LEVODOPA 25/100 MG 1 UDTAB NG SCH ×2 (08:49→12:49)
[2019-09-12] MEDS: METOPROLOL TARTRATE 50 MG TABLET NG SCH (08:49)
[2019-09-12] MEDS: CHOLECALCIFEROL 1,000 UNIT TABLET (VIT D3) NG SCH (08:49)
[2019-09-12 08:50] VITALS: BP 126/61
[2019-09-12] MEDS: LOSARTAN POTASSIUM 50 MG TABLET PO SCH (08:50)
[2019-09-12] MEDS: RIVASTIGMINE TARTRATE 4.6 MG PATCH.TD24 TD SCH (08:52)
[2019-09-12] MEDS: CEFEPIME 2 GM in IV D5W 100 ML IV SCH (09:37)
--- NOTE | 2019-09-12 10:41 | NUR ---
RN NOTES Patient's family requesting the NG tube to be removed prior to transfer. KATERINA DIRECTOR QUALITY SYSTEMS aware. Will remove the NG tube prior to patient leaving the hospital.
--- NOTE | 2019-09-12 11:17 | NUR ---
RN NOTES Patient given apple sauce to see swallow reflex. No choking noted, patient able to swallow apple sauce without any aspiration noted. Charge Nurse aware. at bedside.
[2019-09-12] MEDS: JEVITY 1.2 CAL 1,000 ML BOTTLE GT PRN (13:56)
--- NOTE | 2019-09-12 15:33 | NUR ---
RN DC NOTES Patient discharged at this time, IV line remained in place. NG tube remained in place as request of . Report given to [facility]. No sob noted, vital signs stable. Paper works given to EMT that is transferring patient. Patient has all the paper work, and is not missing anything at this time. Photos taken and is in the chart.
== END 2019-09-12 15:30 | DRG 871 ==
LOC: ER 22:45 → TELE 23:46 → MED 09-08 12:40
PROVIDERS: ADMIT Nurse Practitioner Acute Care; ATTEND Nurse Practitioner Acute Care
DX: A41.81 Sepsis due to Enterococcus (principal); N17.0 Acute kidney failure with tubular necrosis; J69.0 Pneumonitis due to inhalation of food and vomit; G93.41 Metabolic encephalopathy; N39.0 Urinary tract infection, site not specified; D61.818 Other pancytopenia; E87.2 Acidosis; E46 Unspecified protein-calorie malnutrition; J98.11 Atelectasis; R65.20 Severe sepsis without septic shock; A41.89 Other specified sepsis; E87.6 Hypokalemia; F02.80 Dementia in other diseases classified elsewhere, unspecified severity, without behavioral disturbance, psychotic disturbance, mood disturbance, and anxiety; G20 Parkinson's disease; I25.10 Atherosclerotic heart disease of native coronary artery without angina pectoris; Z95.5 Presence of coronary angioplasty implant and graft; Z95.820 Peripheral vascular angioplasty status with implants and grafts; I73.9 Peripheral vascular disease, unspecified; N40.0 Benign prostatic hyperplasia without lower urinary tract symptoms; I10 Essential (primary) hypertension; E83.42 Hypomagnesemia; E88.09 Other disorders of plasma-protein metabolism, not elsewhere classified; B96.4 Proteus (mirabilis) (morganii) as the cause of diseases classified elsewhere; R62.7 Adult failure to thrive; Z68.26 Body mass index [BMI] 26.0-26.9, adult; E83.39 Other disorders of phosphorus metabolism; F09 Unspecified mental disorder due to known physiological condition; Z79.02 Long term (current) use of antithrombotics/antiplatelets; R13.10 Dysphagia, unspecified
CPT/HCPCS: 36415; 36600; 71045-TC; 74018; 76770-TC; 80048-TC; 80061-TC; 80076-TC; 80202-TC; 81000-TC; 82570-TC; 83605-TC; 83735-TC; 83880; 84100-TC; 84155-TC; 84300-TC; 84443-TC; 84484-TC; 85025-TC; 85730-TC; 87040-TC; 87081-TC; 87086-TC; 87186-TC; 92521; 93307-TC; A4216; A6403; A9563; G0378; J0692; J0696; J2185; J3370; J3475; J3480; J7030; J7050; J7060